=== PATIENT | male | born 2000 | race Caucasian/White ===

== ENCOUNTER 2020-09-21 10:01 | Emergency (ER) | payer OTHER ==
[~2020-09-21] VITALS: Ht 177.8 cm; Wt 82.8 kg
[2020-09-21] MEDS ORDERED: ISOVUE-370 76% 100ML VIAL As Ordered ONE (11:46)
--- NOTE | 2020-09-21 12:04 | REP ---
INDICATION: throat pain. COMPARISON: None. TECHNIQUE: Helical scanning is acquired 3 mm axial images re-formatted. Coronal and sagittal MPR images are generated. 75 mL of intravenous Isovue 370 is injected. FINDINGS: Preliminary digital research professional radiograph are unremarkable. The lung apices are clear. The visualized paranasal sinuses are clear. No intraorbital abnormality is seen. Visualized intracranial structures are unremarkable. Parotid and submandibular glands are normal in size and position. Thyroid lobes are normal and symmetric. They are homogeneous. The upper mediastinum appears intact. Glottic and subglottic airway are unremarkable. There is bilateral tonsillar hypertrophy, right greater than left. In the lateral aspect of the right tonsillar soft tissues, there is a small ill-defined low-density area measuring 6 to 7 mm. This could reflect a developing abscess focus. It does not have mature appearing enhancing margins. There is bilateral upper cervical lymphadenopathy. The largest lymph node is an anterior cervical lymph node on the right measuring 1.7 cm in short axis dimension by 2.7 cm by 4.7 cm. There are shotty normal-sized lymph nodes bilaterally in the anterior cervical chain and posterior cervical chain. IMPRESSION: Right tonsillar enlargement with an ill-defined 7 mm low-density area question developing abscess. Shotty bilateral cervical lymphadenopathy especially on the right where there is a 4.7 x 2.7 x 1.7 cm lymph node. <Electronically signed by Rafa Torres > 09/21/20 1200
[2020-09-21] MEDS ORDERED: CLINDAMYCIN 900 MG in IV 1 EA IV ONE (12:30)
[2020-09-21] MEDS ORDERED: CLEO300C2 PO (12:48)
[2020-09-21 14:09] VITALS: BP 115/57
--- NOTE | 2020-09-21 15:20 | ED PDOC ---
Post-Departure Follow-Up ft ki rice and dr alvarenga faxed formal report of ct neck for fu donaldog Thomas Gómez MD Sep 21, 2020 15:20
== END 2020-09-21 14:12 | disposition home or self-care (01) ==
LOC: M ED 10:01
DX: J02.9 Acute pharyngitis, unspecified (principal); J34.89 Other specified disorders of nose and nasal sinuses; J35.1 Hypertrophy of tonsils; R59.0 Localized enlarged lymph nodes; Z87.891 Personal history of nicotine dependence; Z88.0 Allergy status to penicillin
CPT/HCPCS: 70491; 87430; 87880; 96365; 99284; Q9967

== ENCOUNTER 2020-09-22 08:58 | Emergency (ER) | payer OTHER ==
[~2020-09-22] VITALS: Ht 177.8 cm; Wt 83.1 kg
[2020-09-22 08:58] VITALS: BP 116/59
[~2020-09-22 08:58] MED LIST: CLEO300C2 PO
[2020-09-22] MEDS ORDERED: CLINDAMYCIN 150MG CAPSULE PO ONE (09:45)
== END 2020-09-22 10:04 | disposition home or self-care (01) ==
LOC: M ED 08:58
DX: J03.90 Acute tonsillitis, unspecified (principal); Z88.0 Allergy status to penicillin; Z79.2 Long term (current) use of antibiotics